=== PATIENT | female | born 1955 | race American Indian/Alaskan Native ===

== ENCOUNTER 2018-03-31 22:00 | Emergency (ER) | payer MEDICARE, MEDICAID ==
--- NOTE | 2018-03-31 23:29 | XRay Report ---
FINAL REPORT EXAM: XR SPINE CERVICAL 2-3V HISTORY: neck pain TECHNIQUE: Cervical spine five views PRIORS: None. FINDINGS: Spondylosis mid to lower cervical spine anterior osteophytes C4-C5-C5-C6 and C6-C7. No acute fracture or malalignment is identified. Vertebral bodies are normal in height and alignment. Facet joints demonstrate normal alignment. Prevertebral soft tissues are unremarkable. IMPRESSION: Spondylosis with prominent vertebral osteophytes and some disc space narrowing C4-C5 through C6-C7
--- NOTE | 2018-04-01 02:01 | Emergency Department Report ---
HPI - General Chief Complaint: Neck Pain/Injury Time Seen by Provider: 04/01/18 01:59 - HPI HPI: This is a 62-year-old female who presents to ED complaining of neck pain for the past 2 weeks. 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 Patient states she saw her primary care physician give her some Flexeril and diclofenac. Patient states she's been taking that with no relief. Patient denies any trauma, injury to the head or neck. She denies fevers/chills/nausea, stiff neck ED Past Medical Hx - Past Medical History Previous Medical History?: Yes Hx Diabetes: Yes Hx GERD: Yes Additional medical history: Hyperthyroid; High cholestrol - Surgical History Past Surgical History?: Yes Additional Surgical History: R knee replacement;Carpal tunnel L hand, partial hysterectomy "early " - Social History Smoking Status: Never Smoker Substance Use Type: None - Medications Home Medications: Home Medications Medication Instructions Recorded Confirmed Last Taken Type Aspirin [Aspirin BABY CHEW TAB] 81 mg PO DAILY 11/11/13 11/11/13 Unknown History Atorvastatin (Nf) [Lipitor] 10 mg PO DAILY 11/11/13 11/11/13 Unknown History Dicyclomine [Bentyl] 10 mg PO TID 11/11/13 11/11/13 Unknown History Esomeprazole Magnesium [Nexium] 40 mg PO BID 11/11/13 11/11/13 Unknown History Hydrocodone Bit/Acetaminophen 1 each PO Q8HR PRN #15 tablet 11/11/13 Unknown Rx [Lortab 5-500 Tablet] Levothyroxine [Synthroid] 88 mcg PO DAILY 11/11/13 11/11/13 Unknown History Ranitidine HCl [Zantac] 300 mg PO BID 11/11/13 11/11/13 Unknown History metFORMIN [Glucophage] 1,000 mg PO DAILY 11/11/13 11/11/13 Unknown History Naproxen [Naprosyn] 500 mg PO BID #30 tablet 05/18/14 Unknown Rx methOCARBAMOL [Robaxin] 500 mg PO BID #30 tab 05/18/14 Unknown Rx methylPREDNISolone [Medrol Dose 4 mg PO DAILY 6 Days tab 05/18/14 Unknown Rx Lonnie] traMADol [Ultram 50 MG tab] 50 mg PO Q6HR PRN #30 tablet 04/01/18 Unknown Rx ED Review of Systems ROS: Stated complaint: NECK MUSCLE(PAIN) Other details as noted in HPI Constitutional: denies: chills, fever Eyes: denies: eye pain, eye discharge, vision change ENT: denies: ear pain, throat pain Respiratory: denies: cough, shortness of breath, wheezing Cardiovascular: denies: chest pain, palpitations Endocrine: no symptoms reported Gastrointestinal: denies: abdominal pain, nausea, diarrhea Genitourinary: denies: urgency, dysuria, discharge Musculoskeletal: arthralgia. denies: back pain, joint swelling Skin: denies: rash, lesions Neurological: denies: headache, weakness, paresthesias Psychiatric: denies: anxiety, depression Hematological/Lymphatic: denies: easy bleeding, easy bruising Physical Exam - Physical Exam Vital Signs: Vital Signs 03/31/18 03/31/18 21:59 22:19 Temperature 98.3 F 98.3 F Pulse Rate 102 H 102 H Respiratory 20 20 Rate Blood Pressure 140/77 140/77 O2 Sat by Pulse 98 98 Oximetry Physical Exam: GENERAL: Alert and oriented x3, no apparent distress, Normal Gait, atraumatic. HEAD: Head is normocephalic and a-traumatic. NECK: Supple. Non edematous, No lymphadenopathy or thyromegaly. mild C-spine tenderness, full range of motion, tenderness to palpation of the sternocleidomastoid muscles LUNGS: Symetrical with respiration, No wheezing, no rales or crackles, CTAB. HEART: S1, S2 present, regular rate and rhythm without murmur, no rubs, no gallops. Non tender to palpation BACK: Full range of motion, no spinal tenderness, EXTREMITIES/MUSCULOSKELETAL: No cyanosis, clubbing, rash, lesions or edema. Full ROM bilaterally. UE/LE Pulses 2+ bilaterally. LE and UE 5+ strength bilaterally, NEUROLOGIC: The patient is cooperative with no focal neurologic deficits. SKIN: Warm and dry, No lesions, No ulceration or induration present. ED Course Vital Signs 03/31/18 03/31/18 21:59 22:19 Temperature 98.3 F 98.3 F Pulse Rate 102 H 102 H Respiratory 20 20 Rate Blood Pressure 140/77 140/77 O2 Sat by Pulse 98 98 Oximetry ED Medical Decision Making - Radiology Data Radiology results: report reviewed, image reviewed FINAL REPORT EXAM: XR SPINE CERVICAL 2-3V HISTORY: neck pain TECHNIQUE: Cervical spine five views PRIORS: None. FINDINGS: Spondylosis mid to lower cervical spine anterior osteophytes C4-C5-C5-C6 and C6-C7. No acute fracture or malalignment is identified. Vertebral bodies are normal in height and alignment. Facet joints demonstrate normal alignment. Prevertebral soft tissues are unremarkable. IMPRESSION: Spondylosis with prominent vertebral osteophytes and some disc space narrowing C4-C5 through C6-C7 Transcribed By: NAHID Dictated By: JANET LYONS MD Electronically Authenticated By: JANET LYONS MD Signed Date/Time: 03/31/18 8828 - Medical Decision Making 7-year-old female presents to ED with cervical radiculopathy ED course: Patient received norco in ED. X-ray of the cervical spine shows no acute findings, see report above Vital signs are normal patient is in no acute distress Discussed with patient follow-up with primary care physician. Discussed the patient and take medications as prescribed. Patient has no neurological deficit. Patient is alert and oriented 3 and understands all instructions given. I discussed with the patient she will need to follow up with an orthopedic doctor. Patient states she has a orthopedic [facility]. [facility]. I discussed the patient will call and make an appointment with orthopedic for further management of neck pain Critical care attestation.: If time is entered above; I have spent that time in minutes in the direct care of this critically ill patient, excluding procedure time. ED Disposition Clinical Impression: Cervical radiculopathy Disposition: - TO HOME OR SELFCARE Is pt being admited?: No Does the pt Need Aspirin: No Condition: Stable Instructions: Cervical Radiculopathy (ED), Cervical Disc Herniation (ED) Additional Instructions: Make sure to follow up with the primary care physician as discussed. Take all your medications as you've been prescribed. If you have any worsening symptoms or develop new symptoms please return to ED immediately. Prescriptions: traMADol [Ultram 50 MG tab] 50 mg PO Q6HR PRN #30 tablet PRN Reason: Pain Referrals: LALY DUQUE MD [Primary Care Provider] - 3-5 Days EL SPANN MD [Staff Physician] - 3-5 Days Forms: Accompanied Note, Work/School Release Form(ED) Time of Disposition: 02:39
[2018-04-01] MEDS ORDERED: ULTRAM PO ONE (02:38)
[2018-04-01 02:51] VITALS: BP 136/69
== END 2018-04-01 02:50 | disposition home or self-care (01) ==
LOC: ED 22:00
DX: M54.12 Radiculopathy, cervical region (principal); E11.9 Type 2 diabetes mellitus without complications; K21.9 Gastro-esophageal reflux disease without esophagitis; E03.9 Hypothyroidism, unspecified; E78.00 Pure hypercholesterolemia, unspecified; Z90.710 Acquired absence of both cervix and uterus; Z96.651 Presence of right artificial knee joint; Z88.1 Allergy status to other antibiotic agents; Z79.899 Other long term (current) drug therapy; Z79.84 Long term (current) use of oral hypoglycemic drugs
CPT/HCPCS: 72040

== ENCOUNTER 2019-05-18 21:15 | Emergency (ER) | payer MEDICARE, MEDICAID ==
--- NOTE | 2019-05-18 21:49 | Emergency Department Report ---
Blank Doc - Documentation Documentation: This is a 63-year-old female that presents with right foot and ankle pain. This initial assessment/diagnostic orders/clinical plan/treatment(s) is/are subject to change based on patient's health status, clinical progression and re- assessment by fellow clinical providers in the ED. Further treatment and workup at subsequent clinical providers discretion. Patient/guardians urged not to elope from the ED as their condition may be serious if not clinically assessed and managed. Initial orders include: 1- Patient sent to [facility] for further evaluation and treatment 2- xray
--- NOTE | 2019-05-18 22:52 | XRay Report ---
PROCEDURE: XR ANKLE 3+V RT TECHNIQUE: Right ankle radiographs, AP, lateral, and oblique views. HISTORY: pain COMPARISONS: None . FINDINGS: Fracture (s) and/or Dislocation(s): None . Alignment: Normal . Joint space(s): Normal . Soft tissues: Mild degree soft tissue swelling is noted over the malleolus . Bone mineralization: Normal . Foreign bodies: None . Calcaneal spurring: None . IMPRESSION: No acute fracture. This document is electronically signed by Israel Cheema MD., May 18 2019 10:49:54 PM ET
--- NOTE | 2019-05-18 22:54 | XRay Report ---
PROCEDURE: XR FOOT 3+V RT TECHNIQUE: Right foot radiographs, AP, lateral, and oblique views. HISTORY: pain COMPARISONS: None . FINDINGS: Fracture (s) and/or Dislocation(s): None . Alignment: Normal . Joint space(s): Normal . Soft tissues: Normal . Bone mineralization: Normal . Foreign bodies: None . Calcaneal spurring: None . IMPRESSION: No acute abnormality. This document is electronically signed by Israel Cheema MD., May 18 2019 10:52:02 PM ET
[2019-05-19] MEDS ORDERED: NORCO 5/325 PO STA (00:52)
--- NOTE | 2019-05-19 00:58 | Emergency Department Report ---
ED General Adult HPI - General Chief complaint: Extremity Injury, Lower Stated complaint: RT FOOT PAIN Time Seen by Provider: 05/18/19 21:48 Source: patient Mode of arrival: Ambulatory Limitations: No Limitations - History of Present Illness Initial comments: 63-year-old female emergency department complaining of recurrent pain which is chronic in nature. She is currently under the care of air launch weapons technician. She saw just this past Thursday on 05/13/2019 she received an injection to the lateral aspect of her foot and is due to follow-up on June 03. She reports having pain foot. Immediately following the injection was discontinued. Links since the onset, but has not yet called or follow-up with the air launch weapons technician for reevaluation. Reports no fever, numbness, tingling, sweats, but pain is worse with palpation and standing/ambulation. No fever. No drainage. No cellulitis noted. She's not tried any palliative factors with the exception of staying off the foot, which does help Radiation: non-radiation Quality: dull Consistency: constant Improves with: none Worsens with: movement Associated Symptoms: denies: chest pain, cough, diaphoresis, loss of appetite, malaise, nausea/vomiting, rash, syncope, weakness - Related Data Home Medications Medication Instructions Recorded Confirmed Last Taken Aspirin [Aspirin BABY CHEW TAB] 81 mg PO DAILY 11/11/13 11/11/13 Unknown Atorvastatin (Nf) [Lipitor] 10 mg PO DAILY 11/11/13 11/11/13 Unknown Dicyclomine [Bentyl] 10 mg PO TID 11/11/13 11/11/13 Unknown Esomeprazole Magnesium [Nexium] 40 mg PO BID 11/11/13 11/11/13 Unknown Levothyroxine [Synthroid] 88 mcg PO DAILY 11/11/13 11/11/13 Unknown Ranitidine HCl [Zantac] 300 mg PO BID 11/11/13 11/11/13 Unknown metFORMIN [Glucophage] 1,000 mg PO DAILY 11/11/13 11/11/13 Unknown Previous Rx's Medication Instructions Recorded Last Taken Type Hydrocodone Bit/Acetaminophen 1 each PO Q8HR PRN #15 tablet 11/11/13 Unknown Rx [Lortab 5-500 Tablet] Naproxen [Naprosyn] 500 mg PO BID #30 tablet 05/18/14 Unknown Rx methOCARBAMOL [Robaxin] 500 mg PO BID #30 tab 05/18/14 Unknown Rx methylPREDNISolone [Medrol Dose 4 mg PO DAILY 6 Days tab 05/18/14 Unknown Rx Lonnie] traMADol [Ultram 50 MG tab] 50 mg PO Q6HR PRN #30 tablet 04/01/18 Unknown Rx Ketorolac [Toradol] 10 mg PO Q6H PRN #10 tablet 05/19/19 Unknown Rx Allergies Allergy/AdvReac Type Severity Reaction Status Date / Time tetracycline [Tetracycline] AdvReac Unknown Verified 11/11/13 10:55 ED Review of Systems ROS: Stated complaint: RT FOOT PAIN Other details as noted in HPI Constitutional: denies: chills, fever Eyes: denies: eye pain, eye discharge, vision change ENT: denies: ear pain, throat pain Respiratory: denies: cough, shortness of breath, wheezing Cardiovascular: denies: chest pain, palpitations Endocrine: no symptoms reported Gastrointestinal: denies: abdominal pain, nausea, diarrhea Genitourinary: denies: urgency, dysuria, discharge Musculoskeletal: denies: back pain, joint swelling, arthralgia Skin: denies: rash, lesions Neurological: denies: headache, weakness, paresthesias Psychiatric: denies: anxiety, depression Hematological/Lymphatic: denies: easy bleeding, easy bruising ED Past Medical Hx - Past Medical History Previous Medical History?: Yes Hx Diabetes: Yes Hx GERD: Yes Additional medical history: Hyperthyroid; High cholestrol - Surgical History Past Surgical History?: Yes Additional Surgical History: R knee replacement;Carpal tunnel L hand, partial hysterectomy "early 80" - Social History Smoking Status: Never Smoker Substance Use Type: None - Medications Home Medications: Home Medications Medication Instructions Recorded Confirmed Last Taken Type Aspirin [Aspirin BABY CHEW TAB] 81 mg PO DAILY 11/11/13 11/11/13 Unknown History Atorvastatin (Nf) [Lipitor] 10 mg PO DAILY 11/11/13 11/11/13 Unknown History Dicyclomine [Bentyl] 10 mg PO TID 11/11/13 11/11/13 Unknown History Esomeprazole Magnesium [Nexium] 40 mg PO BID 11/11/13 11/11/13 Unknown History Hydrocodone Bit/Acetaminophen 1 each PO Q8HR PRN #15 tablet 11/11/13 Unknown Rx [Lortab 5-500 Tablet] Levothyroxine [Synthroid] 88 mcg PO DAILY 11/11/13 11/11/13 Unknown History Ranitidine HCl [Zantac] 300 mg PO BID 11/11/13 11/11/13 Unknown History metFORMIN [Glucophage] 1,000 mg PO DAILY 11/11/13 11/11/13 Unknown History Naproxen [Naprosyn] 500 mg PO BID #30 tablet 05/18/14 Unknown Rx methOCARBAMOL [Robaxin] 500 mg PO BID #30 tab 05/18/14 Unknown Rx methylPREDNISolone [Medrol Dose 4 mg PO DAILY 6 Days tab 05/18/14 Unknown Rx Lonnie] traMADol [Ultram 50 MG tab] 50 mg PO Q6HR PRN #30 tablet 04/01/18 Unknown Rx Ketorolac [Toradol] 10 mg PO Q6H PRN #10 tablet 05/19/19 Unknown Rx ED Physical Exam - General Limitations: No Limitations General appearance: alert, in no apparent distress - Head Head exam: Present: atraumatic, normocephalic - Eye Eye exam: Present: normal appearance, PERRL, EOMI - ENT ENT exam: Present: mucous membranes moist - Neck Neck exam: Present: normal inspection - Respiratory Respiratory exam: Present: normal lung sounds bilaterally. Absent: respiratory distress - Cardiovascular Cardiovascular Exam: Present: regular rate, normal rhythm. Absent: systolic murmur, diastolic murmur, rubs, gallop - GI/Abdominal GI/Abdominal exam: Present: soft, normal bowel sounds - Extremities Exam Extremities exam: Present: normal inspection - Expanded Lower Extremity Exam Right Foot/Toe exam: Present: full ROM, tenderness, swelling. Absent: laceration, ecchymosis, erythema (no saline as noted. No abrasions, no fissures, no rashes noted), amputation, puncture wound, foreign body, calcaneal tenderness Neuro vascular tendon exam: Present: no vascular compromise. Absent: pulse deficit, abnormal cap refill, motor deficit, sensory deficit - Back Exam Back exam: Present: normal inspection - Neurological Exam Neurological exam: Present: alert, oriented X3 - Psychiatric Psychiatric exam: Present: normal affect, normal mood - Skin Skin exam: Present: warm, dry, intact, normal color. Absent: rash ED Course Vital Signs 05/18/19 21:40 Temperature 98.1 F Pulse Rate 97 H Respiratory 16 Rate Blood Pressure 148/72 O2 Sat by Pulse 99 Oximetry Critical care attestation.: If time is entered above; I have spent that time in minutes in the direct care of this critically ill patient, excluding procedure time. ED Disposition Clinical Impression: Right foot pain Disposition: DC-01 TO HOME OR SELFCARE Is pt being admited?: No Does the pt Need Aspirin: No Condition: Stable Additional Instructions: Please be sure to follow with your air launch weapons technician for further evaluation and treatment recommendations. Post injection foot pain. Currently no signs of any infectious process is noted. Prescriptions: Ketorolac [Toradol] 10 mg PO Q6H PRN #10 tablet PRN Reason: Pain Referrals: MALINDA MURILLO PA [Primary Care Provider] - 3-5 Days
[2019-05-19 01:03] VITALS: BP 111/47
== END 2019-05-19 02:15 | disposition home or self-care (01) ==
LOC: ED 21:15
DX: M79.674 Pain in right toe(s) (principal); M25.571 Pain in right ankle and joints of right foot; E11.9 Type 2 diabetes mellitus without complications; K21.9 Gastro-esophageal reflux disease without esophagitis; E05.90 Thyrotoxicosis, unspecified without thyrotoxic crisis or storm; E78.00 Pure hypercholesterolemia, unspecified; Z88.1 Allergy status to other antibiotic agents; Z79.82 Long term (current) use of aspirin; Z79.84 Long term (current) use of oral hypoglycemic drugs; Z79.899 Other long term (current) drug therapy; Z96.651 Presence of right artificial knee joint; Z90.711 Acquired absence of uterus with remaining cervical stump; Z98.890 Other specified postprocedural states
CPT/HCPCS: 99283

== ENCOUNTER 2019-12-19 10:57 | Emergency (ER) | payer MEDICARE ==
[2019-12-19 11:22] VITALS: BP 164/71
--- NOTE | 2019-12-19 12:03 | XRay Report ---
LEFT WRIST 3 VIEWS INDICATION: deformity/pain r/t fall. COMPARISON: None. IMPRESSION: A comminuted, impacted fracture is identified in the distal radial metaphysis with 20 de grees dorsal angulation and 1 cm posterior displacement. Transverse nondisplaced fracture is identifi ed at the base of the ulnar styloid. The carpal bones are intact and in appropriate relationship. Mi ld diffuse soft tissue swelling. Signer Name: Leonard Lopez Jr, MD Signed: 12/19/2019 11:59 AM Workstation Name: [id number]
[2019-12-19] MEDS ORDERED: oxyCODONE /ACETAMINOPHEN 5-325MG TAB PO ONE (12:10)
--- NOTE | 2019-12-19 12:59 | Emergency Department Report ---
HPI - General Chief Complaint: Extremity Injury, Upper Time Seen by Provider: 12/19/19 12:00 - HPI HPI: 64-year-old Afro-Iranian female presents to emergency department with complaint of left wrist pain after she tripped and fell on a cement ramp prior to presentation. The patient was going to see her foot doctor when she slipped on the ramp and landed on her left wrist. Since that time she has had increased pain, swelling, decreased range of motion. She has a past medical history of diabetes, GERD, hyperthyroidism, high cholesterol. She has an appointment with her orthopedist tomorrow, at [facility], that she previously scheduled for some chronic back pains. ED Past Medical Hx - Past Medical History Previous Medical History?: Yes Hx Diabetes: Yes Hx GERD: Yes Additional medical history: Hyperthyroid; High cholestrol - Surgical History Past Surgical History?: Yes Additional Surgical History: R knee replacement;Carpal tunnel L hand, partial hysterectomy "early " - Social History Smoking Status: Never Smoker Substance Use Type: None - Medications Home Medications: Home Medications Medication Instructions Recorded Confirmed Last Taken Type Aspirin [Aspirin BABY CHEW TAB] 81 mg PO DAILY 11/11/13 11/11/13 Unknown History Atorvastatin (Nf) [Lipitor] 10 mg PO DAILY 11/11/13 11/11/13 Unknown History Dicyclomine [Bentyl] 10 mg PO TID 11/11/13 11/11/13 Unknown History Esomeprazole Magnesium [Nexium] 40 mg PO BID 11/11/13 11/11/13 Unknown History Hydrocodone Bit/Acetaminophen 1 each PO Q8HR PRN #15 tablet 11/11/13 Unknown Rx [Lortab 5-500 Tablet] Levothyroxine [Synthroid] 88 mcg PO DAILY 11/11/13 11/11/13 Unknown History Ranitidine HCl [Zantac] 300 mg PO BID 11/11/13 11/11/13 Unknown History metFORMIN [Glucophage] 1,000 mg PO DAILY 11/11/13 11/11/13 Unknown History Naproxen [Naprosyn] 500 mg PO BID #30 tablet 05/18/14 Unknown Rx methOCARBAMOL [Robaxin] 500 mg PO BID #30 tab 05/18/14 Unknown Rx methylPREDNISolone [Medrol Dose 4 mg PO DAILY 6 Days tab 05/18/14 Unknown Rx Lonnie] traMADoL [Ultram 50 MG tab] 50 mg PO Q6HR PRN #30 tablet 04/01/18 Unknown Rx Ketorolac [Toradol] 10 mg PO Q6H PRN #10 tablet 05/19/19 Unknown Rx HYDROcodone/APAP 5-325 [[place] 1 each PO Q6HR PRN #12 tablet 12/19/19 Unknown Rx 5/325] ED Review of Systems ROS: Stated complaint: LFT SIDE FALL INJURY/WRIST PAIN Other details as noted in HPI Comment: All other systems reviewed and negative Constitutional: denies: fever Musculoskeletal: joint swelling, arthralgia Skin: denies: rash, lesions Neurological: denies: numbness, paresthesias Physical Exam - Physical Exam Vital Signs: Vital Signs 12/19/19 11:21 Temperature 98.1 F Pulse Rate 67 Respiratory 18 Rate Blood Pressure 164/71 O2 Sat by Pulse 100 Oximetry Physical Exam: GENERAL: The patient is well-developed well-nourished. HEENT: Normocephalic. Atraumatic. Patient has moist mucous membranes. EYES: Extraocular motions are intact. NECK: Supple. Trachea is midline. ABDOMEN: There is no abdominal distention. SKIN:Skin is warm and dry. Nonpitting swelling to the circumferential left wrist and distal forearm. NEURO: The patient is awake, alert, and oriented. The patient is cooperative. The patient has no focal neurologic deficits. Normal speech. MUSCULOSKELETAL: There is tenderness to palpation to the left wrist with decreased range of motion secondary to pain. Radial pulse +2 over 4 to the affected left wrist. Capillary refill less than 2 seconds. ED Course Vital Signs 12/19/19 11:21 Temperature 98.1 F Pulse Rate 67 Respiratory 18 Rate Blood Pressure 164/71 O2 Sat by Pulse 100 Oximetry ED Medical Decision Making - Radiology Data Radiology results: report reviewed, image reviewed interpreted by me: X-ray of the left wrist shows a distal radius fracture with some dorsal angulation. The fracture looks impacted. LEFT WRIST 3 VIEWS INDICATION: deformity/pain r/t fall. COMPARISON: None. IMPRESSION: A comminuted, impacted fracture is identified in the distal radial metaphysis with 20 degrees dorsal angulation and 1 cm posterior displacement. Transverse nondisplaced fracture is identified at the base of the ulnar styloid. The carpal bones are intact and in appropriate relationship. Mild diffuse soft tissue swelling. - Medical Decision Making This patient presents with some pain and swelling around the left wrist after falling directly onto her wrist just prior to presentation. She appears neurovascularly intact. X-ray shows a distal radius fracture that is comminuted and impacted, as well as a ulnar styloid fracture. As it is comminuted and impacted, since she has an appointment with an orthopedist in the morning, I do not feel that she needed immediate closed reduction. Patient was given a prescription for pain medication, placed in a sugar tong splint, and instructed to follow-up with her orthopedist in the a.m. She will return to the ER with any worsening of her symptoms or any acute distress. - Differential Diagnosis fracture, contusion, dislocation, sprain, strain Critical Care Time: No Critical care attestation.: If time is entered above; I have spent that time in minutes in the direct care of this critically ill patient, excluding procedure time. ED Disposition Clinical Impression: Fracture of radius, distal, left, closed Qualifiers: Encounter type: initial encounter Fracture morphology: Tommy' Qualified Code(s): S52.532A - Colles' fracture of left radius, initial encounter for closed fracture Fracture of ulnar styloid Qualifiers: Encounter type: initial encounter Fracture type: closed Fracture alignment: displaced Laterality: left Qualified Code(s): S52.612A - Displaced fracture of left ulna styloid process, initial encounter for closed fracture Disposition: - TO HOME OR SELFCARE Is pt being admited?: No Condition: Stable Instructions: Wrist Fracture in Adults (ED) Additional Instructions: Please follow up with your orthopedist tomorrow as previously scheduled. Remain in the splint until follow-up with the orthopedist. Return to the emergency department with any worsening of your symptoms or with any acute distress. You have been prescribed a pain medication that can be sedating. Therefore this medication cannot be taken prior to working, driving, being responsible for children, cannot be mixed with alcohol any quantity. Prescriptions: HYDROcodone/APAP 5-325 [[place] 5/325] 1 each PO Q6HR PRN #12 tablet PRN Reason: Pain Referrals: Orthopedist, Your [Other] - 12/20/19 Time of Disposition: 13:03
== END 2019-12-19 14:13 | disposition home or self-care (01) ==
LOC: ED 10:57
DX: S52.502A Unspecified fracture of the lower end of left radius, initial encounter for closed fracture (principal); S52.615A Nondisplaced fracture of left ulna styloid process, initial encounter for closed fracture; E11.9 Type 2 diabetes mellitus without complications; E03.9 Hypothyroidism, unspecified; E78.00 Pure hypercholesterolemia, unspecified; K21.9 Gastro-esophageal reflux disease without esophagitis; Z88.8 Allergy status to other drugs, medicaments and biological substances; Z98.890 Other specified postprocedural states; Z90.710 Acquired absence of both cervix and uterus; Z79.899 Other long term (current) drug therapy; W19.XXXA Unspecified fall, initial encounter; Y93.89 Activity, other specified; Y92.89 Other specified places as the place of occurrence of the external cause; Y99.8 Other external cause status

== ENCOUNTER 2021-10-22 10:28 | Emergency (ER) | payer MEDICARE ==
[2021-10-22] MEDS ORDERED: ONDANSETRON 4 MG/2 ML INJ IV ONE (10:48)
[2021-10-22] MEDS ORDERED: MORPHINE 4 MG/1 ML INJ IV ONE (10:48)
[2021-10-22] MEDS ORDERED: SODIUM CHLORIDE 0.9% 1000 ML 1,000 ML IV ONE (10:48)
[2021-10-22 11:20] LABS: Basophils % (Auto) 0.2 % (0.0-1.8); Eosinophils # (Auto) 0.1 K/mm3 (0.0-0.4); Eosinophils % (Auto) 1.7 % (0.0-4.3); Hematocrit 34.5 % (30.3-42.9); Hemoglobin 11.4 gm/dl (10.1-14.3); Lymphocytes # (Auto) 1.6 K/mm3 (1.2-5.4); Lymphocytes % (Auto) 27.3 % (13.4-35.0); Mean Corpuscular HGB Conc 33 % (30-34); Mean Corpuscular Volume 85 fl (79-97); Monocytes # (Auto) 0.6 K/mm3 (0.0-0.8); Platelet Count 285 K/mm3 (140-440); Red Blood Count 4.05 M/mm3 (3.65-5.03); Red Cell Distribution Width 14.1 % (13.2-15.2)
[2021-10-22 11:35] LABS: Alanine Aminotransferase 17 units/L (7-56); Albumin 4.2 g/dL (3.9-5); Blood Urea Nitrogen 13 mg/dL (7-17); Calcium 9.7 mg/dL (8.4-10.2); Hemolysis Index 3
[2021-10-22 11:36] LABS: BUN/Creatinine Ratio 19
--- NOTE | 2021-10-22 11:40 | Emergency Department Report ---
ED Abdominal Pain HPI - General Chief Complaint: Abdominal Pain Stated Complaint: BACK PAIN Time Seen by Provider: 10/22/21 10:36 Source: patient Mode of arrival: Ambulatory Limitations: No Limitations - History of Present Illness Initial Comments: Patient is a 65-year-old female presents emergency room complaints of right lower quadrant abdominal pain for approximately 3 weeks. She states that she is also been having right lower back pain. Patient has associated nausea. Patient states that she is currently seeing an orthopedic doctor due to right hip pain. She states that the orthopedic doctor advised her to be seen in the emergency department. She states that she does have some discomfort with movement. She denies any fever, nausea, vomiting, diarrhea, hematochezia, melena, hematemesis, urinary symptoms. She states that she is having normal bowel movements. allergy: tetracycline. she states she has had a normal colonoscopy. - Related Data Home Medications Medication Instructions Recorded Confirmed Last Taken Aspirin [Aspirin BABY CHEW TAB] 81 mg PO DAILY 11/11/13 11/11/13 Unknown Atorvastatin (Nf) [Lipitor] 10 mg PO DAILY 11/11/13 11/11/13 Unknown Dicyclomine [Bentyl] 10 mg PO TID 11/11/13 11/11/13 Unknown Esomeprazole Magnesium [Nexium] 40 mg PO BID 11/11/13 11/11/13 Unknown Levothyroxine [Synthroid] 88 mcg PO DAILY 11/11/13 11/11/13 Unknown Ranitidine HCl [Zantac] 300 mg PO BID 11/11/13 11/11/13 Unknown metFORMIN [Glucophage] 1,000 mg PO DAILY 11/11/13 11/11/13 Unknown Previous Rx's Medication Instructions Recorded Last Taken Type Hydrocodone Bit/Acetaminophen 1 each PO Q8HR PRN #15 tablet 11/11/13 Unknown Rx [Lortab 5-500 Tablet] Naproxen [Naprosyn] 500 mg PO BID #30 tablet 05/18/14 Unknown Rx methOCARBAMOL [Robaxin] 500 mg PO BID #30 tab 05/18/14 Unknown Rx methylPREDNISolone [Medrol Dose 4 mg PO DAILY 6 Days tab 05/18/14 Unknown Rx Lonnie] traMADoL [Ultram 50 MG tab] 50 mg PO Q6HR PRN #30 tablet 04/01/18 Unknown Rx Ketorolac [Toradol] 10 mg PO Q6H PRN #10 tablet 05/19/19 Unknown Rx HYDROcodone/APAP 5-325 [[place] 1 each PO Q6HR PRN #12 tablet 12/19/19 Unknown Rx 5/325] Meloxicam [Mobic] 7.5 mg PO QDAY #14 tablet 10/22/21 Unknown Rx Menthol/Camphor [[place]ent[place] 1 applicatio TP BID #18 oint...g. 10/22/21 Unknown Rx Ointment] methOCARBAMOL [Robaxin TAB] 500 mg PO BID PRN #14 tablet 10/22/21 Unknown Rx Allergies Allergy/AdvReac Type Severity Reaction Status Date / Time Latex, Natural Rubber AdvReac Hives Verified 10/22/21 10:37 tetracycline [Tetracycline] AdvReac Unknown Verified 11/11/13 10:55 ED Review of Systems ROS: Stated complaint: BACK PAIN Other details as noted in HPI Comment: All other systems reviewed and negative ED Past Medical Hx - Past Medical History Hx Diabetes: Yes Hx GERD: Yes Additional medical history: Hyperthyroid; High cholestrol - Surgical History Additional Surgical History: R knee replacement;Carpal tunnel L hand, partial hysterectomy "early " - Social History Smoking Status: Never Smoker Substance Use Type: None - Medications Home Medications: Home Medications Medication Instructions Recorded Confirmed Last Taken Type Aspirin [Aspirin BABY CHEW TAB] 81 mg PO DAILY 11/11/13 11/11/13 Unknown History Atorvastatin (Nf) [Lipitor] 10 mg PO DAILY 11/11/13 11/11/13 Unknown History Dicyclomine [Bentyl] 10 mg PO TID 11/11/13 11/11/13 Unknown History Esomeprazole Magnesium [Nexium] 40 mg PO BID 11/11/13 11/11/13 Unknown History Hydrocodone Bit/Acetaminophen 1 each PO Q8HR PRN #15 tablet 11/11/13 Unknown Rx [Lortab 5-500 Tablet] Levothyroxine [Synthroid] 88 mcg PO DAILY 11/11/13 11/11/13 Unknown History Ranitidine HCl [Zantac] 300 mg PO BID 11/11/13 11/11/13 Unknown History metFORMIN [Glucophage] 1,000 mg PO DAILY 11/11/13 11/11/13 Unknown History Naproxen [Naprosyn] 500 mg PO BID #30 tablet 06/19/14 Unknown Rx methOCARBAMOL [Robaxin] 500 mg PO BID #30 tab 05/18/14 Unknown Rx methylPREDNISolone [Medrol Dose 4 mg PO DAILY 6 Days tab 05/18/14 Unknown Rx Lonnie] traMADoL [Ultram 50 MG tab] 50 mg PO Q6HR PRN #30 tablet 04/01/18 Unknown Rx Ketorolac [Toradol] 10 mg PO Q6H PRN #10 tablet 05/19/19 Unknown Rx HYDROcodone/APAP 5-325 [[place] 1 each PO Q6HR PRN #12 tablet 12/19/19 Unknown Rx 5/325] Meloxicam [Mobic] 7.5 mg PO QDAY #14 tablet 10/22/21 Unknown Rx Menthol/Camphor [[place] 1 applicatio TP BID #18 oint...g. 10/22/21 Unknown Rx Ointment] methOCARBAMOL [Robaxin TAB] 500 mg PO BID PRN #14 tablet 10/22/21 Unknown Rx ED Physical Exam - General Limitations: No Limitations General appearance: alert, in no apparent distress - Head Head exam: Present: atraumatic, normocephalic - Eye Eye exam: Present: normal appearance - ENT ENT exam: Present: mucous membranes moist - Respiratory Respiratory exam: Present: normal lung sounds bilaterally. Absent: respiratory distress, wheezes, rales, rhonchi, stridor, chest wall tenderness, accessory muscle use, decreased breath sounds, prolonged expiratory - Cardiovascular Cardiovascular Exam: Present: regular rate, normal rhythm, normal heart sounds. Absent: systolic murmur, diastolic murmur, rubs, gallop - GI/Abdominal GI/Abdominal exam: Present: soft, tenderness (RLQ), normal bowel sounds. Absent: distended, guarding, rebound, rigid - Back Exam Back exam: Absent: CVA tenderness (R), CVA tenderness (L) - Neurological Exam Neurological exam: Present: alert, oriented X3 - Psychiatric Psychiatric exam: Present: normal affect, normal mood - Skin Skin exam: Present: warm, dry, intact ED Course Vital Signs 10/22/21 10/22/21 10/22/21 10:36 11:14 11:15 Temperature 98.1 F Pulse Rate 78 75 70 Respiratory 16 16 22 Rate Blood Pressure 117/55 Blood Pressure 133/61 [Right] O2 Sat by Pulse 100 100 Oximetry 10/22/21 10/22/21 10/22/21 11:47 12:01 12:15 Temperature Pulse Rate 69 63 Respiratory 11 L 18 Rate Blood Pressure 117/55 117/55 114/48 Blood Pressure [Right] O2 Sat by Pulse 100 100 99 Oximetry 10/22/21 10/22/21 10/22/21 12:39 12:41 14:24 Temperature 97.9 F 97.9 F Pulse Rate 73 73 Respiratory 14 14 Rate Blood Pressure 149/86 117/55 Blood Pressure 149/86 [Right] O2 Sat by Pulse 98 98 96 Oximetry 10/22/21 10/22/21 10/22/21 14:31 14:45 15:01 Temperature Pulse Rate 62 62 62 Respiratory 19 16 17 Rate Blood Pressure 122/52 122/52 126/57 Blood Pressure [Right] O2 Sat by Pulse 100 100 98 Oximetry - Reevaluation(s) Reevaluation #1: 10/22/21 12:[address] Moran, ER attending who agrees with MRI. ED Medical Decision Making - Lab Data Result diagrams: 10/22/21 10:52 10/22/21 10:52 - Radiology Data Radiology results: report reviewed Ordering Physician: CECELIA MARTEL Date of Service: 10/22/21 Procedure(s): CT abdomen pelvis w con Accession Number(s): [id number] cc: CECELIA MARTEL CT abdomen pelvis w con INDICATION: RLQ abd pain, nausea, right lower back pain 100 ml omni 300 . TECHNIQUE: All CT scans at this location are performed using CT dose reduction for ALARA by means of automated exposure control. COMPARISON: None available. FINDINGS: There is mild subsegmental atelectasis in left lower lobe without acute pulmona ry abnormality. The gallbladder is surgically absent. The liver, kidneys, pancreas, right adren al gland, and spleen all appear normal. There is an indeterminate well-defined 1.9 cm left adrenal n odule. There are no acute bowel abnormalities. The appendix is normal. There are postsurgical changes from previous decompressive laminectomy from L2 through L5. There is a fluid collection in the laminectomy site measuring about 6.4 x 1.6 x 2.1 cm. IMPRESSION: 1. No definite acute findings. 2. Fluid collection in the lumbar spine laminectomy location which is most likely a postoperative seroma. However, it would be difficult to exclude infected fluid/abscess/meningocele on the basis of these images. 3. Incidental left adrenal nodule. If there is no previous imaging to evaluate for stability, follow-up adrenal protocol CT is recommended for further evaluation. INCIDENTAL ADRENAL MASS The Management of Incidental Adrenal Masses revised in 2017 by the Adrenal Subcommittee of the Incidental Findings Committee of the [employer] is an algorithm for the management of patients who are: * adults (i.e. 18-year-old or over) * asymptomatic for adrenal pathology * referred for imaging for reasons unrelated to adrenal pathology SUMMARY * adrenal masses <1 cm do not require further investigation * incidental masses should be categorized according to diagnostic imaging features, mass size, growth (cf. prior imaging if available) and cancer history * dedicated adrenal CT is preferred to determine if a 1-4 cm mass, with density >10 HU, is a benign adenoma * wherever possible, the stability of a lesion should be assessed with any modality that has imaged the adrenals in the past (e.g. chest CT, PET-CT, abdominal US, lumbar spine MRI) * consider patients comorbidities, life expectancy and ability to receive treatment before recommending further investigation ALGORITHM Incidental, asymptomatic adrenal mass 1 cm Diagnostic benign imaging features * myelolipoma or lipid-rich adenoma * macroscopic fat * density <10 HU on non-contrast CT * signal loss compared to the spleen on in-phase and opposed-phase images of a chemical-shift MRI sequence * cyst * benign calcified mass e.g. old hematoma or granulomatous infection * hemorrhage * normal or benign serum calcium * no follow-up required INDETERMINATE IMAGING FEATURES SIZE 1 CM - 4 CM 1. Prior Imaging * stable 1 year and no biochemical features of functioning adenoma or phaeochromocytoma * no follow-up * new or enlarging * no cancer history * consider follow-up adrenal CT or resection * cancer history * consider biopsy or PET-CT 2. No prior imaging; No cancer history * <2 cm * probably benign, consider [address] * 2-4 cm * adrenal CT 3. No prior imaging, with cancer history and isolated adrenal mass * adrenal CT SIZE >4 CM * with no cancer history * consider resection * with cancer history * consider biopsy or PET-CT ADRENAL CT * reduced dose non-contrast CT 10 HU and no biochemical features of functioning adenoma or phaeochromocytoma * benign adenoma, no follow-up * non-contrast CT >10 HU * adrenal CT washout * no enhancement (<10 HU) = cyst or hemorrhage * benign, no follow-up * absolute percentage washout (APW) / relative percentage washout (RPW) 60/40% * and, no biochemical features of hyperfunctioning adenoma or phaeochr omocytoma * benign adenoma, no follow-up * APW/RPW <60/40% * imaging follow-up, biopsy, PET-CT or resection depending on clinical scenario https://www.jacr.org/article/V0241-4465(62)42051-3/fulltext https://radiopaedia.org/articles/gtjllkpiio-fi-fcjozizedc-iiypcth-khzzvm-lyasep jo-hmgtzmp-ek-radiolo zv-cpnbf-xwjck-1lang=us Signer Name: Ralf Drew MD Signed: 10/22/2021 12:09 PM Workstation Name: [id number] Transcribed By: JASE Dictated By: Ralf Drew MD Electronically Authenticated By: Ralf Drew MD Signed Date/Time: 10/22/21 120 DD/ 05 TD/TT: Ordering Physician: CECELIA MARTEL Date of Service: 10/22/21 Procedure(s): MR lumbar spine wo/w con Accession Number(s): [id number] cc: CECELIA MARTEL MR lumbar spine wo/w con INDICATION / CLINICAL INFORMATION: abd pain, back pain, abnormal CT. TECHNIQUE: Multisequence, multiplanar images of the lumbar spine were obtained. COMPARISON: CT 10/19/2021 FINDINGS: Postoperative changes from L3 and L4 laminectomies with thecal sac decompression. There is a peripherally enhancing fluid collection seen within the postoperative bed which is most likely a postoperative seroma. Significant enhancement is seen involving the paraspinal musculature and the articulating processes/pedicles at these levels. Enhancement is also seen circumferentially along the epidural space at these levels. Findings are thought to be related to postoperative etiology. Overall, there is no significant spinal canal stenosis present at any level. Moderate facet arthropathy at the postoperative levels with associated mild foraminal narrowing is present at L3-L4 and L4-5. There is a focus of hyperintensity seen on postcontrast image 24 series 7 which is not seen on sagittal postcontrast imaging could be related to fat which suppresses. IMPRESSION: Postoperative changes from laminectomy with thecal sac decompression and no significant spinal canal stenosis. Fluid collection the laminectomy bed, most likely related to postoperative seroma. There is significant enhancement seen within the postoperative bed and posterior elements at the postoperative levels which is thought to be most likely related to postoperative etiology. Correlate clinically. Definitions used for the purposes of this report: Lumbar canal stenosis (Veronica et al. Br J Radiol. 2013 March;86(4745):[id number]): No stenosis: No attenuation of the CSF spaces Mild stenosis: Anterior CSF space mildly obliterated Moderate stenosis: Anterior CSF space is moderately obliterated; cauda equina partially aggregated Severe stenosis: Marked compression of the dural sac; cauda equina cannot be visually and appear as a bundle Lumbar lateral recess stenosis (Hugh et al. World J Radiol. 2017 April 26;9(5):223-229): No stenosis: Nerve root is bathed in fluid Mild stenosis: Narrowing of the lateral recess without root deviation Moderate stenosis: Narrowing of the recess with nerve root deviation Severe stenosis: Compression of the nerve root Lumbar neural foraminal stenosis (Shen et al. AJR Am J Roentgenol. 2010 Feb;194(4):1095-8): No stenosis: No attenuation of the fat in the foramen Mild stenosis: Loss of the fat in the foramen on two sides Moderate stenosis: Loss of the fat in the foramen all four sides Severe stenosis: Loss of the fat in the foramen all four sides and compression of the nerve root Signer Name: Edwar Westbrook MD Signed: 10/22/2021 2:41 PM Workstation Name: [id number] Transcribed By: Dictated By: Edwar Westbrook MD Electronically Authenticated By: Edwar Westbrook MD Signed Date/Time: 10/22/21 1441 DD/ 142 TD/TT: - Medical Decision Making Patient is a 65-year-old female presents emergency room complaints of right lower quadrant abdominal pain for approximately 3 weeks. She states that she is also been having right lower back pain. Patient has associated nausea. Patient states that she is currently seeing an orthopedic doctor due to right hip pain. She states that the orthopedic doctor advised her to be seen in the emergency department. She states that she does have some discomfort with movement. She denies any fever, nausea, vomiting, diarrhea, hematochezia, melena, hematemesis, urinary symptoms. She states that she is having normal bowel movements. allergy: tetracycline. she states she has had a normal colonoscopy. vitals are normal. on exam: RLQ abd tenderness on exam, no guarding, no rebound, no rigidity, no peritoneal signs, no CVA tenderness. labs are stable. UA WNL. CT abd pelvis with IV contrast: 1. No definite acute findings. 2. Fluid collection in the lumbar spine laminectomy location which is most likely a postoperative seroma. However, it would be difficult to exclude infected fluid/abscess/meningocele on the basis of these images. 3. Incidental left adrenal nodule. If there is no previous imaging to evaluate for stability, follow-up adrenal protocol CT is recommended for further evaluation. Discussed case with Dr. Moran, ER attending who agrees with MRI. MRI lumbar spine: Postoperative changes from laminectomy with thecal sac decompression and no significant spinal canal stenosis. Fluid collection the laminectomy bed, most likely related to postoperative seroma. There is significant enhancement seen within the postoperative bed and posterior elements at the postoperative levels which is thought to be most likely related to postoperative etiology. Correlateclinically. Patient given medications while in the emergency department with improvement of her symptoms. Discussed all results with patient. She was feeling much better and ready to go home. Discussed the importance of outpatient follow-up. Discussed return precautions. Patient given prescription for medications. Advised patient Please take medication as prescribed. Follow-up with a primary care doctor. Return to emergency room for any new or worsening symptoms. Critical care attestation.: If time is entered above; I have spent that time in minutes in the direct care of this critically ill patient, excluding procedure time. ED Disposition Clinical Impression: Adrenal nodule Abdominal pain Qualifiers: Abdominal location: right lower quadrant Qualified Code(s): R10.31 - Right lower quadrant pain Back pain Qualifiers: Back pain location: low back pain Chronicity: acute Back pain laterality: right Sciatica presence: without sciatica Qualified Code(s): M54.50 - Low back pain, unspecified Disposition: 01 HOME / SELF CARE / HOMELESS Is pt being admited?: No Does the pt Need Aspirin: No Condition: Stable Instructions: Acute Back Pain, Adult, Abdominal Pain, Adult, [id number], Abdominal Pain (ED) Additional Instructions: Please take medication as prescribed. Follow-up with a primary care doctor. Return to emergency room for any new or worsening symptoms. Prescriptions: Meloxicam [Mobic] 7.5 mg PO QDAY #14 tablet methOCARBAMOL [Robaxin TAB] 500 mg PO BID PRN #14 tablet PRN Reason: muscle spasm/pain Menthol/Camphor [Fallent[place]ber [place] Ointment] 1 applicatio TP BID #18 oint...g. Referrals: PRIMARY CARE, [Primary Care Provider] - 2-3 Days Time of Disposition: 15:04 Print Language: TAMAZIGHT
--- NOTE | 2021-10-22 12:14 | Cat Scan Report ---
CT abdomen pelvis w con INDICATION: RLQ abd pain, nausea, right lower back pain 100 ml omni 300 . TECHNIQUE: All CT scans at this location are performed using CT dose reduction for ALARA by means of automated e xposure control. COMPARISON: None available. FINDINGS: There is mild subsegmental atelectasis in left lower lobe without acute pulmonary abnormality. The gallbladder is surgically absent. The liver, kidneys, pancreas, right adrenal gland, and spleen a ll appear normal. There is an indeterminate well-defined 1.9 cm left adrenal nodule. There are no acute bowel abnormalities. The appendix is normal. There are postsurgical changes from previous decompressive laminectomy from L2 through L5. There is a fluid collection in the laminectomy site measuring about 6.4 x 1.6 x 2.1 cm. IMPRESSION: 1. No definite acute findings. 2. Fluid collection in the lumbar spine laminectomy location which is most likely a postoperative ser lisa. However, it would be difficult to exclude infected fluid/abscess/meningocele on the basis of the se images. 3. Incidental left adrenal nodule. If there is no previous imaging to evaluate for stability, follow- up adrenal protocol CT is recommended for further evaluation. INCIDENTAL ADRENAL MASS The Management of Incidental Adrenal Masses revised in 2017 by the Adrenal Subcommittee of the Incide ntal Findings Committee of the [employer] is an algorithm for the management of pa tients who are: * adults (i.e. 18-year-old or over) * asymptomatic for adrenal pathology * referred for imaging for reasons unrelated to adrenal pathology SUMMARY * adrenal masses <1 cm do not require further investigation * incidental masses should be categorized according to diagnostic imaging features, mass size, growt h (cf. prior imaging if available) and cancer history * dedicated adrenal CT is preferred to determine if a 1-4 cm mass, with density >10 HU, is a benign adenoma * wherever possible, the stability of a lesion should be assessed with any modality that has imaged the adrenals in the past (e.g. chest CT, PET-CT, abdominal US, lumbar spine MRI) * consider patients comorbidities, life expectancy and ability to receive treatment before recommend ing further investigation ALGORITHM Incidental, asymptomatic adrenal mass 1 cm Diagnostic benign imaging features * myelolipoma or lipid-rich adenoma * macroscopic fat * density <10 HU on non-contrast CT * signal loss compared to the spleen on in-phase and opposed-phase images of a chemical-shift MRI se quence * cyst * benign calcified mass e.g. old hematoma or granulomatous infection * hemorrhage * normal or benign serum calcium * no follow-up required INDETERMINATE IMAGING FEATURES SIZE 1 CM - 4 CM 1. Prior Imaging * stable 1 year and no biochemical features of functioning adenoma or phaeochromocytoma * no follow-up * new or enlarging * no cancer history * consider follow-up adrenal CT or resection * cancer history * consider biopsy or PET-CT 2. No prior imaging; No cancer history * <2 cm * probably benign, consider [address] * 2-4 cm * adrenal CT 3. No prior imaging, with cancer history and isolated adrenal mass * adrenal CT SIZE >4 CM * with no cancer history * consider resection * with cancer history * consider biopsy or PET-CT ADRENAL CT * reduced dose non-contrast CT 10 HU and no biochemical features of functioning adenoma or phaeochro mocytoma * benign adenoma, no follow-up * non-contrast CT >10 HU * adrenal CT washout * no enhancement (<10 HU) = cyst or hemorrhage * benign, no follow-up * absolute percentage washout (APW) / relative percentage washout (RPW) 60/40% * and, no biochemical features of hyperfunctioning adenoma or phaeochromocytoma * benign adenoma, no follow-up * APW/RPW <60/40% * imaging follow-up, biopsy, PET-CT or resection depending on clinical scenario https://www.jacr.org/article/I[address]17-[address]68(31)49051-3/fulltext https://radiopaedia.org/articles/qjbjegeggg-jh-wjembmxwfu-xhkvlox-jupysa-zgvripvb-dtiudhk-th-fqccaahi l-qwpgj-btkuv-1lang=us Signer Name: Ralf Drew MD Signed: 10/22/2021 12:09 PM Workstation Name: [id number]
[2021-10-22 12:48] LABS: Bilirubin,Urine NEG (Negative); Blood,Urine NEG (Negative); Color,Urine Straw (Yellow); Protein,Urine <15 mg/dL mg/dL (Negative); Urobilinogen,Urine < 2.0 mg/dL (<2.0)
--- NOTE | 2021-10-22 14:45 | Magnetic Resonance Report ---
MR lumbar spine wo/w con INDICATION / CLINICAL INFORMATION: abd pain, back pain, abnormal CT. TECHNIQUE: Multisequence, multiplanar images of the lumbar spine were obtained. COMPARISON: CT 10/19/2021 FINDINGS: Postoperative changes from L3 and L4 laminectomies with thecal sac decompression. There is a peripher ally enhancing fluid collection seen within the postoperative bed which is most likely a postoperativ e seroma. Significant enhancement is seen involving the paraspinal musculature and the articulating p rocesses/pedicles at these levels. Enhancement is also seen circumferentially along the epidural spac e at these levels. Findings are thought to be related to postoperative etiology. Overall, there is no significant spinal canal stenosis present at any level. Moderate facet arthropathy at the postoperat gerardo levels with associated mild foraminal narrowing is present at L3-L4 and L4-5. There is a focus of hyperintensity seen on postcontrast image 24 series 7 which is not seen on sagittal postcontrast luz ging could be related to fat which suppresses. IMPRESSION: Postoperative changes from laminectomy with thecal sac decompression and no significant spinal canal stenosis. Fluid collection the laminectomy bed, most likely related to postoperative seroma. There is significant enhancement seen within the postoperative bed and posterior elements at the postoperativ e levels which is thought to be most likely related to postoperative etiology. Correlate clinically. Definitions used for the purposes of this report: Lumbar canal stenosis (Veronica et al. Br J Radiol. 2012;86(1195):[id number]): No stenosis: No attenuation of the CSF spaces Mild stenosis: Anterior CSF space mildly obliterated Moderate stenosis: Anterior CSF space is moderately obliterated; cauda equina partially aggregated Severe stenosis: Marked compression of the dural sac; cauda equina cannot be visually and a ppear as a bundle Lumbar lateral recess stenosis (Hugh et al. World J Radiol. 2017 April 26;9(5):223-229): No stenosis: Nerve root is bathed in fluid Mild stenosis: Narrowing of the lateral recess without root deviation Moderate stenosis: Narrowing of the recess with nerve root deviation Severe stenosis: Compression of the nerve root Lumbar neural foraminal stenosis (Shen et al. AJR Am J Roentgenol. 2010 Feb;194(4):1095-8): No stenosis: No attenuation of the fat in the foramen Mild stenosis: Loss of the fat in the foramen on two sides Moderate stenosis: Loss of the fat in the foramen all four sides Severe stenosis: Loss of the fat in the foramen all four sides and compression of the nerve root Signer Name: Edwar Westbrook MD Signed: 10/22/2021 2:41 PM Workstation Name: [id number]
[2021-10-22 15:26] VITALS: BP 126/57
== END 2021-10-22 15:36 | disposition home or self-care (01) ==
LOC: ED 10:28
DX: E27.9 Disorder of adrenal gland, unspecified (principal); R10.31 Right lower quadrant pain; M54.50 Low back pain, unspecified
CPT/HCPCS: 36415; 72158; 74177; 80053; 81001; 83690; 85025; 96361; 96374; 96375; 99284; A9575; J2270; J2405; J7030; Q9967; Q0162